=== PATIENT | female | born 1965 | race American Indian/Alaskan Native ===

== ENCOUNTER 2017-08-07 15:27 | Emergency (ER) | payer OTHER ==
[2017-08-07 15:42] VITALS: BP 150/95
[2017-08-07] MEDS ORDERED: TETRACAINE 0.5% OU ONE (16:08)
--- NOTE | 2017-08-07 16:14 | Emergency Department Report ---
ED Eye Problem HPI - General Chief complaint: Eye Problems Stated complaint: LEFT EYE IRRITATION Time Seen by Provider: 08/07/17 16:03 Source: patient Mode of arrival: Ambulatory Limitations: No Limitations - History of Present Illness Initial comments: Patient presents to the emergency department with a complaint of her left eye burning for the last 2 days. Patient states she woke up 2 days ago and had a sensation of something was stuck in eye. Patient states bright lights make her pain worse and she denies any change in her vision. She feels as if she has to continuously blink her eyes to get rid of irritation. chief complaint: eye pain -: Sudden Onset Description: sudden Location: left eye Place: home, work If Injury: none Eye Symptoms: pain, foreign body sensation, photophobia Severity: moderate Severity scale (0 -10): 5 If Pain, Quality: other (burning/irritation) Consistency: constant Associated Symptoms: none Treatments Prior to Arrival: none - Related Data Previous Rx's Medication Instructions Recorded Last Taken Type Gentamicin 0.3% Ophth Soln 2 drops OP Q4H #1 bottle 01/13/15 Unknown Rx Ibuprofen [Motrin] 800 mg PO Q8HR PRN #60 tablet 01/13/15 Unknown Rx methOCARBAMOL [Robaxin TAB] 500 mg PO BID #10 tab 01/13/15 Unknown Rx traMADol [Ultram] 50 mg PO Q6HR PRN #14 tablet 01/13/15 Unknown Rx Ibuprofen [Motrin] 800 mg PO Q8HR PRN #30 tablet 08/07/17 Unknown Rx Polymyxin B Sulf/Trimethoprim 10 ml OP TID #1 drops 08/07/17 Unknown Rx [Polytrim Eye Drops] traMADol [Ultram] 50 mg PO Q6HR PRN #24 tablet 08/07/17 Unknown Rx Allergies Allergy/AdvReac Type Severity Reaction Status Date / Time No Known Allergies Allergy Unverified 01/13/15 13:03 ED Review of Systems ROS: Stated complaint: LEFT EYE IRRITATION Other details as noted in HPI Constitutional: denies: chills, fever Eyes: denies: eye pain, eye discharge, vision change ENT: denies: ear pain, throat pain Respiratory: denies: cough, shortness of breath, wheezing Cardiovascular: denies: chest pain, palpitations Endocrine: no symptoms reported Gastrointestinal: denies: abdominal pain, nausea, diarrhea Genitourinary: denies: urgency, dysuria, discharge Musculoskeletal: denies: back pain, joint swelling, arthralgia Skin: denies: rash, lesions Neurological: denies: headache, weakness, paresthesias Psychiatric: denies: anxiety, depression Hematological/Lymphatic: denies: easy bleeding, easy bruising ED Past Medical Hx - Past Medical History Previous Medical History?: No - Surgical History Past Surgical History?: Yes Additional Surgical History: X 2 - Social History Smoking Status: Never Smoker Substance Use Type: None - Medications Home Medications: Home Medications Medication Instructions Recorded Confirmed Last Taken Type Gentamicin 0.3% Ophth Soln 2 drops OP Q4H #1 bottle 01/13/15 Unknown Rx Ibuprofen [Motrin] 800 mg PO Q8HR PRN #60 tablet 01/13/15 Unknown Rx methOCARBAMOL [Robaxin TAB] 500 mg PO BID #10 tab 01/13/15 Unknown Rx traMADol [Ultram] 50 mg PO Q6HR PRN #14 tablet 01/13/15 Unknown Rx Ibuprofen [Motrin] 800 mg PO Q8HR PRN #30 tablet 08/07/17 Unknown Rx Polymyxin B Sulf/Trimethoprim 10 ml OP TID #1 drops 08/07/17 Unknown Rx [Polytrim Eye Drops] traMADol [Ultram] 50 mg PO Q6HR PRN #24 tablet 08/07/17 Unknown Rx ED Physical Exam - General Limitations: No Limitations General appearance: alert, in no apparent distress - Head Head exam: Present: atraumatic, normocephalic - Eye Eye exam: Present: normal appearance, PERRL, EOMI, other (abrasion can be appreciated on exam without slit lamp). Absent: conjunctival injection, periorbital swelling, periorbital tenderness Pupils: Present: normal accommodation - Neck Neck exam: Present: normal inspection - Respiratory Respiratory exam: Present: normal lung sounds bilaterally - Cardiovascular Cardiovascular Exam: Present: regular rate, normal rhythm - GI/Abdominal GI/Abdominal exam: Present: soft. Absent: tenderness - Neurological Exam Neurological exam: Present: alert, altered, oriented X3, CN II-XII intact. Absent: motor sensory deficit ED Course Vital Signs 08/07/17 15:39 Temperature 98.2 F Pulse Rate 99 H Blood Pressure 150/95 O2 Sat by Pulse 99 Oximetry ED Medical Decision Making - Medical Decision Making Patient had complete relief of pain with tetracaine Critical care attestation.: If time is entered above; I have spent that time in minutes in the direct care of this critically ill patient, excluding procedure time. ED Disposition Clinical Impression: Corneal abrasion Disposition: DC-01 TO HOME OR SELFCARE Is pt being admited?: No Does the pt Need Aspirin: No Condition: Stable Instructions: Corneal Abrasion (ED) Additional Instructions: Return if worse or any visual changes Prescriptions: Ibuprofen [Motrin] 800 mg PO Q8HR PRN #30 tablet PRN Reason: Pain Polymyxin B Sulf/Trimethoprim [Polytrim Eye Drops] 10 ml OP TID #1 drops traMADol [Ultram] 50 mg PO Q6HR PRN #24 tablet PRN Reason: Pain Referrals: MEDINA STACK MD [Staff Physician] - 3-5 Days Time of Disposition: 16:37
== END 2017-08-07 17:15 | disposition home or self-care (01) ==
LOC: ED 15:27
DX: S05.02XA Injury of conjunctiva and corneal abrasion without foreign body, left eye, initial encounter (principal); X58.XXXA Exposure to other specified factors, initial encounter; Y93.89 Activity, other specified; Y92.89 Other specified places as the place of occurrence of the external cause; Y99.8 Other external cause status
CPT/HCPCS: 99282

== ENCOUNTER 2018-04-01 12:50 | Emergency (ER) | payer OTHER ==
[2018-04-01 12:58] VITALS: BP 160/91
[2018-04-01] MEDS ORDERED: TETRACAINE 0.5% OU ONE (13:17)
--- NOTE | 2018-04-01 13:25 | Emergency Department Report ---
ED Eye Problem HPI - General Chief complaint: Eye Problems Stated complaint: EYE PAIN Time Seen by Provider: 04/01/18 13:14 Source: patient Mode of arrival: Ambulatory Limitations: No Limitations - History of Present Illness Initial comments: This is a 52-year-old female with history of "cut in my eye". She has been evaluated twice in our ER once in July and once in December for similar symptoms. Four months ago she was evaluated by an eye doctor. She was told she had a "cut in her eye". Her left eye has recurrent irritation. No history of foreign body or trauma. She does not use contact lenses. She has used antibiotic drops in the past. chief complaint: eye pain -: Gradual, days(s) (1) Onset Description: gradual Location: left eye Eye Symptoms: burning, photophobia, other (tearing) Severity: moderate If Pain, Quality: burning Consistency: constant - Related Data Previous Rx's Medication Instructions Recorded Last Taken Type Gentamicin 0.3% Ophth Soln 2 drops OP Q4H #1 bottle 01/13/15 Unknown Rx Ibuprofen [Motrin] 800 mg PO Q8HR PRN #60 tablet 01/13/15 Unknown Rx methOCARBAMOL [Robaxin TAB] 500 mg PO BID #10 tab 01/13/15 Unknown Rx traMADol [Ultram] 50 mg PO Q6HR PRN #14 tablet 01/13/15 Unknown Rx Ibuprofen [Motrin] 800 mg PO Q8HR PRN #30 tablet 08/07/17 Unknown Rx Polymyxin B Sulf/Trimethoprim 10 ml OP TID #1 drops 08/07/17 Unknown Rx [Polytrim Eye Drops] traMADol [Ultram] 50 mg PO Q6HR PRN #24 tablet 08/07/17 Unknown Rx Ciprofloxacin HCl [Ciloxan] 2 drops OS Q4H #1 bottle 04/01/18 Unknown Rx Allergies Allergy/AdvReac Type Severity Reaction Status Date / Time No Known Allergies Allergy Verified 12/27/17 16:36 ED Review of Systems ROS: Stated complaint: EYE PAIN Other details as noted in HPI Constitutional: denies: fever, malaise Respiratory: denies: cough Cardiovascular: denies: chest pain Neurological: denies: headache ED Past Medical Hx - Past Medical History Previous Medical History?: Yes Additional medical history: EYE PROBLEM X8 - Surgical History Past Surgical History?: Yes Additional Surgical History: X 2 - Social History Smoking Status: Never Smoker Substance Use Type: None - Medications Home Medications: Home Medications Medication Instructions Recorded Confirmed Last Taken Type Gentamicin 0.3% Ophth Soln 2 drops OP Q4H #1 bottle 01/13/15 Unknown Rx Ibuprofen [Motrin] 800 mg PO Q8HR PRN #60 tablet 01/13/15 Unknown Rx methOCARBAMOL [Robaxin TAB] 500 mg PO BID #10 tab 01/13/15 Unknown Rx traMADol [Ultram] 50 mg PO Q6HR PRN #14 tablet 01/13/15 Unknown Rx Ibuprofen [Motrin] 800 mg PO Q8HR PRN #30 tablet 08/07/17 Unknown Rx Polymyxin B Sulf/Trimethoprim 10 ml OP TID #1 drops 08/07/17 Unknown Rx [Polytrim Eye Drops] traMADol [Ultram] 50 mg PO Q6HR PRN #24 tablet 08/07/17 Unknown Rx Ciprofloxacin HCl [Ciloxan] 2 drops OS Q4H #1 bottle 04/01/18 Unknown Rx ED Physical Exam - General Limitations: No Limitations General appearance: alert, in no apparent distress - Head Head exam: Present: atraumatic, normocephalic - Eye Eye exam: Absent: scleral icterus, conjunctival injection - Expanded Eye Exam Expanded Eyelids: Normal Inspection: Left (mild edema) Pupils: Regular, Round: Bilateral, Reactive: Bilateral, Miosissis: Left Sclera/Conjunctival: Normal Inspection: Left (edematous chemosis), Injection: Left (minimal), Hemorrhage: Left (none), Foreign Body: Left (none), Exudate: Left (none) Anterior chamber: Normal Inspection: Left (apparent small punctate corneal defects), Hyphema: Left (none) Posterior chamber: Deferred: Left ED Course Vital Signs 04/01/18 12:54 Temperature 97.6 F Pulse Rate 79 Respiratory 16 Rate Blood Pressure 160/91 O2 Sat by Pulse 99 Oximetry ED Medical Decision Making - Medical Decision Making Mrs. Franklin presents to the third time within the past 8 months for left eye irritation. Differential diagnosis includes recurrent corneal abrasion, recurrent iritis. Strongly encouraged follow-up with [facility]. She was given referrals to [facility]. Prescribed ciprofloxacin ophthalmic drops. Critical care attestation.: If time is entered above; I have spent that time in minutes in the direct care of this critically ill patient, excluding procedure time. ED Disposition Clinical Impression: Irritation of left eye Disposition: DC-01 TO HOME OR SELFCARE Is pt being admited?: No Does the pt Need Aspirin: No Condition: Stable Instructions: Eye Pain (ED) Prescriptions: Ciprofloxacin HCl [Ciloxan] 2 drops OS Q4H #1 bottle Referrals: MEDINA STACK MD [Staff Physician] - [facility] [Provider Group] - [facility], [facility] [Provider Group] - [facility]
== END 2018-04-01 13:56 | disposition home or self-care (01) ==
LOC: ED 12:50
DX: H57.89 Other specified disorders of eye and adnexa (principal)
CPT/HCPCS: 99282